=== PATIENT | female | born 1945 | race Two or more races ===

== ENCOUNTER → 2016-04-30 | Day surgery (SDC) | payer MEDICARE, OTHER ==
--- NOTE | 2016-04-26 10:42 | Pre-Procedure Note/Attestation ---
Pre-Procedure Note/Attestation Complete Prior to Procedure Planned Procedure: right Procedure Narrative: 1.CATARACT EXTRACTION WITH PHACO AND PC IOL IMPLANTATION, RIGHT EYE. 2.LIMBAL RELAXING INCISION (LRI), RIGHT EYE. I Indications for Procedure Pre-Operative Diagnosis: 1. CATARACT, RIGHT EYE. 2.ASTIGMATISM, RIGHT EYE. Attestation I attest that I discussed the nature of the procedure; its benefits; risks and complications; and alternatives (and the risks and benefits of such alternatives ), prior to the procedure, with the patient (or the patient's legal international account representative). I attest that, if there was a reasonable possibility of needing a blood transfusion, the patient (or the patient's legal international account representative) was given the [place] [facility] standardized written summary, pursuant to the Dorian Leon Blood Safety Act ([place] Health and Safety Code # 1645, as amended). I attest that I re-evaluated the patient just prior to the surgery and that there has been no change in the patient's H&P, except as documented below: DAVEY FRIED Apr 26, 2016 10:42
[2016-04-30] VITALS (9 sets, daily range): BP systolic 134–178; BP diastolic 64–98
[~2016-04-30] VITALS: Ht 165.1 cm; Wt 63.5 kg
[~2016-04-30] MED LIST: Akten 3.5% 1ml Btl ONE; BSS 15ml BTL ONE; BSS 500ml btl ONE; Dexamethasone 4mg/ml vial ONE; Diclofenac Sod 0.1% Op Soln ONE; DiphenhydrAMINE 50mg/ml Inj IVP PRN; EPINEPHrine 1mg/1ml Amp ONE; Gatifloxacin Opth Solution 0.5% ONE; LEVOTHYROXINE50 MCG ORAL; LEVOTHYROXINE75 MCG ORAL; LISINOPRIL20 MG ORAL; LR 1000ml 1,000 ML IVLG SCH; LR 1000ml ONE; Labetalol 5mg/ml 20ml vial IV PRN; Lidocaine 1% MPF 10mg/ml 5ml ONE; Lidocaine 1% Plain 30 ml INJ ONE; METFORMIN HCL500 M1 ORAL; Midazolam 2mg/2ml Inj ONE; NS Irrig 1000ml ONE; Phenylephrine 10% Opth Soln 5ml ONE; Povidone-Iodine 5% opth solution ONE; Sodium Hyaluronate 10 mg/ml 0.85ml ONE; Sterile Water Irrig 1000ml IRRIG ONE; Tropicamide 1% Opth Soln ONE; acetaZOLAMIDE 125mg tab ORAL ONE; fentaNYL 100 mcg/2 mL IV ONE
--- NOTE | 2016-04-30 07:43 | Anethesia Preoperative Eval ---
Anesthesia Pre-op PMH/ROS General Date of Evaluation: Apr 30, 2016 Anesthesiologist: Marcelino ASA Score: ASA 2 Mallampati Score Class I : Soft palate, uvula, fauces, pillars visible Class II: Soft palate, uvula, fauces visible Class III: Soft palate, base of uvula visible Class IV: Only hard plate visible Mallampati Classification: Class II Surgeon: Rishabh Diagnosis: Right cataract Surgical Procedure: Right catarct extraction with IOL Anesthesia History: none Family History: no anesthesia problems Allergies: Coded Allergies: No Known Allergies (Unverified , 04/26/16) Medications: see eMAR Past Medical History Cardiovascular: Reports: HTN, Denies: CAD, [place], arrhythmia, other, valve dz Pulmonary: Denies: COPD, MEGAN, asthma, other Gastrointestinal/Genitourinary: Reports: GERD, Denies: CRI, ESRD, other Neurologic/Psychiatric: Denies: CVA, TIA, dementia, depression/anxiety, other Endocrine: Reports: DM, hypothyroidism, Denies: other, steroids HEENT: Reports: cataract (L), cataract (R), Denies: SNOQUALMIE (L), SNOQUALMIE (R), glaucoma, other Hematology/Immune: Denies: DVT, anemia, bleeding disorder, other Musculoskeletal/Integumentary: Reports: OA, Denies: DDD, DJD, RA, edema, other Anesthesia Pre-op Phys. Exam Physician Exam see chart Constitutional: NAD Cardiovascular: RRR Respiratory: CTA Airway Exam Mallampati Score: Class II MO: full Teeth: other - dental implants Anesthesia Pre-op A/P Labs see chart Studies Pre-op Studies: EKG - sr Risk Assessment & Plan Assessment: ASa II Plan: MAC Status Change Before Surgery: No Pre-Antibiotics Drug: N/A ANUP ROBLES M.D. Apr 30, 2016 07:43
--- NOTE | 2016-04-30 07:44 | Immediate Post-Op Evaluation ---
Immediate Post-Op Evalulation Immediate Post-Op Evalulation Procedure: Right cataract extraction with IOL Date of Evaluation: Apr 30, 2016 Time of Evaluation: 10:18 IV Fluids: 300 Blood Products: 0 Estimated Blood Loss: 0 Urinary Output: 0 Blood Pressure Systolic: 178 Blood Pressure Diastolic: 98 Pulse Rate: 66 Respiratory Rate: 16 O2 Sat by Pulse Oximetry: 100 Temperature (Fahrenheit): 99.1 Pain Score (1-10): 0 Nausea: No Vomiting: No Complications 0 Patient Status: awake, reacts, patent, none Hydration Status: adequate Drug: N/A ANUP ROBLES M.D. Apr 30, 2016 07:44
--- NOTE | 2016-04-30 07:44 | 48 Hour Post Anesthesia Eval ---
Post Anesthesia Evaluation Procedure: Right cataract extraction with IOL Date of Evaluation: Apr 30, 2016 Blood Pressure Systolic: 161 0: 89 Pulse Rate: 61 Respiratory Rate: 16 O2 Sat by Pulse Oximetry: 100 Airway: patent Nausea: No Vomiting: No Pain Intensity: 0 Hydration Status: adequate Cardiopulmonary Status: at baseline Mental Status/LOC: patient returned to baseline Post-Anesthesia Complications: 0 Follow-up care needed: ready to discharge ANUP ROBLES M.D. Apr 30, 2016 07:44
[2016-04-30] MEDS: Diclofenac Sod 0.1% Op Soln RIGHT EYE SCH ×3 (07:52→08:30)
[2016-04-30] MEDS: Tropicamide 1% Opth Soln RIGHT EYE SCH ×3 (07:52→08:30)
[2016-04-30] MEDS: Akten 3.5% 1ml Btl RIGHT EYE SCH ×3 (07:52→08:30)
[2016-04-30] MEDS: Phenylephrine 10% Opth Soln 5ml RIGHT EYE SCH ×3 (07:53→08:31)
[2016-04-30] MEDS: Gatifloxacin Opth Solution 0.5% RIGHT EYE SCH ×3 (07:53→08:31)
--- NOTE | 2016-04-30 10:17 | Brief Operative Note ---
Immediate Post Operative Note Operative Note Chief Complaint: Blurry vision, right eye. Difficulty driving and reading, right eye Pre-op Diagnosis: 1. CATARACT, RIGHT EYE. 2.ASTIGMATISM, RIGHT EYE. Procedure: 1- Cataract extraction with phaco and PC IOL implantation, right eye 2- Limbal relaxing incision ( LRI ), right eye Post-op Diagnosis: same as pre-op Surgeon: Davey Keating MD. Weight Clerk: None Additional Surgeons: None Anesthesiologist: Dr. Gibson Anesthesia: MAC Specimen: none Complications: none Condition: stable Estimated Blood Loss: none Drains: none Implant(s) used?: Yes - Monofocal PC IOL implanted in the right eye without complication DAVEY KEATING Apr 30, 2016 10:17
--- NOTE | 2016-04-30 23:17 | Discharge Summary ---
DATE OF ADMISSION: 04/30/2016 DATE OF DISCHARGE: 04/30/2016 REASON FOR HOSPITALIZATION: Cataract in the right eye. SURGERY PERFORMED: 1. Cataract extraction with phacoemulsification and posterior chamber intraocular lens implantation in the right eye. 2. Limbal relaxing incision (LRI) in the right eye. CONDITION IN THE HOSPITAL: The patient tolerated the surgery without complications. CONDITION AT DISCHARGE: The patient was stable at discharge. DISCHARGE MEDICATIONS: 1. Prednisolone 1% q.i.d., right eye. 2. Vigamox eye drops one drop q.i.d., right eye. 3. Acular one drop q.i.d., right eye. POSTOPERATIVE ORDERS: The patient has to rest at home. No bending. No lifting. No watching TV tonight. POSTOPERATIVE FOLLOWUP: The patient will be followed in my office tomorrow morning at 9 o'clock. Waldo Keating M.D. DR: DAGO JOB#: [id number] CC:
--- NOTE | 2016-05-01 00:17 | Operative Note - Dictated ---
DATE OF OPERATION: 04/30/2016 FACILITY: [facility]. SURGEON: Waldo Keating M.D. PRESALES CONSULTANT: None. ANESTHESIOLOGIST: Dr. Gibson. ANESTHESIA: Monitored anesthesia care (MAC). PREOPERATIVE DIAGNOSES: 1. Cataract, right eye. 2. Astigmatism of the right eye. POSTOPERATIVE DIAGNOSES: 1. Cataract of the right eye. 2. Astigmatism of the right eye. SURGERIES PERFORMED: 1. Cataract extraction with phacoemulsification and posterior chamber intraocular lens implantation in the right eye. 2. Limbal relaxing incision (LRI) in the right eye. INDICATION FOR SURGERY: The patient is a 70-year-old lady with history of hypertension, hypothyroidism, osteopenia, diabetes mellitus type 2, depression, and . The patient does not have any allergy to medication and the patient is not a smoker. Medications including aspirin 81 mg a day, lisinopril, hydrochlorothiazide, 20 mg one tablet daily, atorvastatin oral 20 mg, levothyroxine 75 mg a day, metformin 500 mg twice a day, Zoloft once a day, and melatonin 20 mg once at night. She is complaining of blurry vision in the right eye. On examination of the right eye, the cornea is clear. Anterior chamber is clean and quiet. Pupillary reflex is normal. There is 3+ nuclear sclerosis and 2+ cortical cataract. Funduscopy shows normal optic disc, normal macula, and periphery retina is within normal limits. To improve her vision in the right eye, the cataract has to be removed and posterior chamber intraocular lens has to be implanted. INFORMED CONSENT: The nature of the surgery, risks, benefits, alternatives, and potential complications were explained in detail to the patient in her language, Farsi. The potential complications including, but not limited to bleeding, infection, posterior capsular rupture, lens subluxation, flat anterior chamber, iris prolapse, uveitis, corneal edema, macular edema, retinal detachment, loss of vision, and even loss of the eye were all explained in detail to the patient. The patient voiced understanding and accepted all the complications. The alternatives including accommodating lenses, multifocal lenses, and conventional cataract surgery with limbal relaxing incision for treatment of astigmatism were all explained in detail to the patient, who voiced understanding. The patient elected to have only conventional cataract surgery in the right eye and limbal relaxing incision post treatment of astigmatism. Then, she signed the consent form, which is in the chart. DESCRIPTION OF SURGERY AND FINDINGS: Following that, the patient was taken to the operation room in a stable condition. Lidocaine gel, Akten 3.5% were applied to the conjunctiva of the right eye. Following that, IV sedation was given by the anesthesiologist, Dr. Gibson. After adequate anesthesia and sedation had been achieved, the right eye was prepped and draped in sterile fashion for intraocular surgery. Following that, a speculum was placed in the right eye. Before, the patient was taken to the operation room, the eye was marked at 180 and 90 meridian. In the operation room, the cornea was marked using a corneal marker and marking pen and steep meridian at the cornea was marked. Following that, with a yoana knife 600 micron blade, two parallel incisions were placed on the steep meridian at the cornea for treatment of astigmatism. Following that, using a Super Sharp knife, a clear corneal side port was created. A 1% lidocaine was injected into the anterior chamber. The viscoelastic agent, Healon was injected into the anterior chamber. Following that, a clear corneal temporal keratotomy was performed. Following that, a VisionBlue was injected into the anterior chamber on top of the anterior capsule of the lens to stain the anterior capsule of the lens. Following that, a clear fresh viscoelastic agent, Healon was injected into the anterior chamber again. Under the viscoelastic agent, an anterior capsulotomy was performed in the fashion of capsulorrhexis beautifully. Following that, all viscoelastic agent was removed from the anterior chamber. Following that, with balanced salt solution, hydrodissection and hydrodelineation was performed and the nucleus was freed. Following that, viscoelastic agent was injected into the anterior chamber again to protect the endothelium of the cornea. Following that, using the phacoemulsification machine in the fashion of horizontal chop, the nucleus was removed in toto. Following that, using the irrigation aspiration unit, the cortical material was removed from the capsular bag and the capsular bag was polished. Following that, the capsular bag was filled with viscoelastic agent, Healon. Following that, a +22.5 diopter ZCB00 foldable PCIOL with serial number [id number] was injected into the capsular bag. Using a Sinskey hook, the lens was manipulated within the proper position. Following that, the viscoelastic agent was removed from that anterior and posterior part of the lens and the anterior chamber was filled with the balanced salt solution. The wounds were hydrated with balanced salt solution. Following that, the wound was checked for leakage and there was no leakage. Vigamox eyedrops were applied to the conjunctiva of the right eye. The patient tolerated the surgery without complications. At the end of the surgery, the eye was patched with a clear sterile fenestrated shield. Following the patient was transferred to the recovery room. In the recovery room, 125 mg Diamox was given by mouth stat. Postoperative orders and directions were given to the patient. The patient will be discharged home upon stabilization. The patient will be followed in my office tomorrow morning at 9 o'clock. Waldo Keating M.D. DR: DAGO JOB#: [id number] CC:
== END | disposition home or self-care (01) ==
LOC: SUR 07:22
DX: H25.11 Age-related nuclear cataract, right eye (principal); H25.011 Cortical age-related cataract, right eye; H52.201 Unspecified astigmatism, right eye; E11.9 Type 2 diabetes mellitus without complications; Z79.84 Long term (current) use of oral hypoglycemic drugs; I10 Essential (primary) hypertension; E03.9 Hypothyroidism, unspecified; E78.5 Hyperlipidemia, unspecified; K21.9 Gastro-esophageal reflux disease without esophagitis; M19.90 Unspecified osteoarthritis, unspecified site; M81.0 Age-related osteoporosis without current pathological fracture; F32.9 Major depressive disorder, single episode, unspecified; G47.00 Insomnia, unspecified; Z79.82 Long term (current) use of aspirin; Z79.899 Other long term (current) drug therapy
CPT/HCPCS: 66984; 66999; 82962; J0171; J1100; J1200; J2001; J2250; J3010; J7120; V2632; 94003; 94150

== ENCOUNTER → 2016-05-07 | Day surgery (SDC) | payer MEDICARE, OTHER ==
--- NOTE | 2016-05-02 15:27 | Pre-Procedure Note/Attestation ---
Pre-Procedure Note/Attestation Complete Prior to Procedure Planned Procedure: left Procedure Narrative: 1.CATARACT EXTRACTION WITH PHACO AND PC IOL IMPLANTATION, LEFT EYE. Indications for Procedure Pre-Operative Diagnosis: 1. CATARACT, LEFT EYE. Attestation I attest that I discussed the nature of the procedure; its benefits; risks and complications; and alternatives (and the risks and benefits of such alternatives ), prior to the procedure, with the patient (or the patient's legal senior sales representative). I attest that, if there was a reasonable possibility of needing a blood transfusion, the patient (or the patient's legal senior sales representative) was given the [facility] standardized written summary, pursuant to the Dorian Leon Blood Safety Act ([place] Health and Safety Code # 1645, as amended). I attest that I re-evaluated the patient just prior to the surgery and that there has been no change in the patient's H&P, except as documented below: DAVEY FRIED May 02, 2016 15:27
[~2016-05-07] VITALS: Ht 162.6 cm; Wt 63.5 kg
[2016-05-07] VITALS (8 sets, daily range): BP systolic 136–169; BP diastolic 71–82
[~2016-05-07] MED LIST changes: +Carbachol 0.01% Op Soln 1.5ml vial ONE; +DiphenhydrAMINE 50mg/ml Inj ONE; -Lidocaine 1% Plain 30 ml INJ ONE; +Tetracaine 0.5% Opth Soln ONE
[2016-05-07] MEDS: Phenylephrine 10% Opth Soln 5ml LEFT EYE SCH ×3 (07:12→07:26)
[2016-05-07] MEDS: Akten 3.5% 1ml Btl LEFT EYE SCH ×3 (07:12→07:26)
[2016-05-07] MEDS: Gatifloxacin Opth Solution 0.5% LEFT EYE SCH ×3 (07:13→07:26)
[2016-05-07] MEDS: Tropicamide 1% Opth Soln LEFT EYE SCH ×3 (07:13→07:26)
[2016-05-07] MEDS: Diclofenac Sod 0.1% Op Soln LEFT EYE SCH ×3 (07:13→07:26)
--- NOTE | 2016-05-07 07:21 | Anethesia Preoperative Eval ---
Anesthesia Pre-op PMH/ROS General Date of Evaluation: May 07, 2016 Anesthesiologist: Marcelino ASA Score: ASA 2 Mallampati Score Class I : Soft palate, uvula, fauces, pillars visible Class II: Soft palate, uvula, fauces visible Class III: Soft palate, base of uvula visible Class IV: Only hard plate visible Mallampati Classification: Class II Surgeon: Rishabh Diagnosis: Left cataract Surgical Procedure: Left cataract extraction with IOL Anesthesia History: none Family History: no anesthesia problems Allergies: Coded Allergies: No Known Allergies (Unverified , 04/26/16) Medications: see eMAR Past Medical History Cardiovascular: Reports: HTN, Denies: CAD, [place], arrhythmia, other, valve dz Pulmonary: Denies: COPD, MEGAN, asthma, other Gastrointestinal/Genitourinary: Reports: GERD, Denies: CRI, ESRD, other Neurologic/Psychiatric: Denies: CVA, TIA, dementia, depression/anxiety, other Endocrine: Reports: DM, hypothyroidism, Denies: other, steroids HEENT: Denies: AKHIOK (L), AKHIOK (R), cataract (L), cataract (R), glaucoma, other Hematology/Immune: Denies: DVT, anemia, bleeding disorder, other Musculoskeletal/Integumentary: Reports: OA, Denies: DDD, DJD, RA, edema, other PSxH Narrative: see chart Anesthesia Pre-op Phys. Exam Physician Exam see chart Constitutional: NAD Cardiovascular: RRR Respiratory: CTA Airway Exam Mallampati Score: Class II Anesthesia Pre-op A/P Labs see chart Studies Pre-op Studies: EKG - sr Risk Assessment & Plan Assessment: ASA II Plan: MAC Status Change Before Surgery: No Pre-Antibiotics Drug: N/A ANUP ROBLES M.D. May 07, 2016 07:21
--- NOTE | 2016-05-07 07:24 | Immediate Post-Op Evaluation ---
Immediate Post-Op Evalulation Immediate Post-Op Evalulation Procedure: Left cataract extraction with IOL Date of Evaluation: May 07, 2016 Time of Evaluation: 09:25 IV Fluids: 300 Blood Products: 0 Estimated Blood Loss: 0 Urinary Output: 0 Blood Pressure Systolic: 170 Blood Pressure Diastolic: 89 Pulse Rate: 72 Respiratory Rate: 16 O2 Sat by Pulse Oximetry: 98 Temperature (Fahrenheit): 97.6 Pain Score (1-10): 0 Nausea: No Vomiting: No Complications 0 Patient Status: awake, reacts, patent, none Hydration Status: adequate Drug: N/A ANUP ROBLES M.D. May 07, 2016 07:24
--- NOTE | 2016-05-07 07:25 | 48 Hour Post Anesthesia Eval ---
Post Anesthesia Evaluation Procedure: Left cataract extraction with IOL Date of Evaluation: May 07, 2016 Blood Pressure Systolic: 159 0: 88 Pulse Rate: 68 Respiratory Rate: 16 O2 Sat by Pulse Oximetry: 98 Airway: patent Nausea: No Vomiting: No Pain Intensity: 0 Hydration Status: adequate Cardiopulmonary Status: at baseline Mental Status/LOC: patient returned to baseline Post-Anesthesia Complications: 0 Follow-up care needed: ready to discharge ANUP ROBLES M.D. May 07, 2016 07:25
--- NOTE | 2016-05-07 09:24 | Brief Operative Note ---
Immediate Post Operative Note Operative Note Chief Complaint: Blurry vision, left eye. Difficulty reading and driving Pre-op Diagnosis: 1. CATARACT, LEFT EYE. Procedure: Cataract extraction with phaco and PC IOL implantation left eye Post-op Diagnosis: same as pre-op Surgeon: Davey Keating MD. Fx Artist: None Additional Surgeons: None Anesthesiologist: Dr. Gibson Anesthesia: MAC Specimen: none Complications: none Condition: stable Estimated Blood Loss: none Drains: none Implant(s) used?: Yes - Monofocal PC IOL implanted in the left eye without complication DAVEY KEATING May 07, 2016 09:24
--- NOTE | 2016-05-07 22:17 | Operative Note - Dictated ---
DATE OF OPERATION: 05/07/2016 FACILITY: [facility]. SURGEON: Waldo Keating M.D. REGISTERED VASCULAR TECHNOLOGIST (RVT): None. ANESTHESIOLOGIST: Dr. Gibson. ANESTHESIA: Monitored anesthesia care (MAC). PREOPERATIVE DIAGNOSIS: Cataract, left eye. POSTOPERATIVE DIAGNOSIS: Cataract, left eye. SURGERY PERFORMED: 1. Cataract extraction with phacoemulsification of posterior chamber intraocular lens implantation in the left eye. 2. Limbal relaxing incision (LRI), left eye. INDICATION FOR SURGERY: The patient is a 70-year-old lady with history of hypertension, hypothyroidism, osteopenia, diabetes mellitus type 2, depression, and hyperlipidemia. The patient denies any allergies to medications and the patient is not a smoker. Medication including aspirin 81 mg a day, lisinopril, hydrochlorothiazide one tablet daily, atorvastatin oral 20 mg, levothyroxine 75 mcg a day, metformin 500 mg twice a day, Zoloft, and melatonin at night. She is complaining of blurry vision in the left eye. On examination of the left eye, the cornea is clear. Anterior chamber is clean and quiet. Pupillary reflex is normal. There is 3+ nuclear sclerosis and 2+ cortical cataract. Funduscopy shows normal optic disc, normal macula, and periphery retina is within normal limits. She has had cataract surgery in the right eye last week and she is happy with the result. He improve her vision in the left eye, the cataract has to be removed and posterior chamber intraocular lens has to be implanted. INFORMED CONSENT: The nature of the surgery, risks, benefits, alternatives, and potential complications were explained in detail to the patient in her language, Farsi. The potential complications including, but not limited to bleeding, infection, posterior capsular rupture, lens subluxation, flat anterior chamber, iris prolapse, uveitis, corneal edema, macular edema, endophthalmitis, retinal detachment, loss of vision, and even loss of the eye were all explained in detail to the patient. The patient voiced understanding and accepted all the complications. The alternatives including accommodating lenses, multifocal lenses, and conventional cataract surgery with limbal relaxing incision for treatment of astigmatism were all explained in detail to the patient, who voiced understanding. The patient elected to have only conventional cataract surgery in the left eye. Then, she signed the consent form, which is in the chart. DESCRIPTION OF SURGERY AND FINDINGS: Following that, the patient was taken to the operation room in a stable condition. Lidocaine gel, Akten 3.5% were applied to the conjunctiva of the left eye. Following that, IV sedation was given by the anesthesiologist, Dr. Gibson. After adequate anesthesia and sedation had been achieved, the left eye was prepped and draped in sterile fashion for intraocular surgery. Following that, a speculum was placed in the left eye. Following that, using a Super Sharp knife, a clear corneal side port was created. Following that, 1% lidocaine without preservative (MPF) was injected into the anterior chamber. Viscoelastic agent Healon was injected into the anterior chamber. Following that, a clear corneal temporal keratotomy was performed with a 2.8 mm keratome. Following that, a VisionBlue was injected under the viscoelastic agent into anterior chamber to stain the anterior capsule of the lens. Following that, clear and fresh viscoelastic agent Healon was injected into the anterior chamber again. Under the fresh and clear, viscoelastic agent Healon an anterior capsulotomy was performed in the fashion of capsulorrhexis beautifully. Following that, whole viscoelastic agent was removed from the anterior chamber. Following that, with balanced salt solution hydrodissection and hydrodelineation was performed and the nucleus was freed. Following that, a clear new viscoelastic agent was injected into the anterior chamber again to protect the endothelium of the cornea again. Following that, using a phacoemulsification machine in the fashion of horizontal chop, the nucleus was removed in toto. Following that, using irrigation aspiration unit, the cortical material was removed from the capsular bag and the capsular bag was polished. Following that, the capsular bag was filled with viscoelastic agent, Healon. Following that, +23.5 diopter IOL, brand [id number] foldable PC IOL with serial was injected into the anterior chamber. Healon was injected into the capsular bag. Using a Sinskey hook, the lens was manipulated within the proper position. Following that, the viscoelastic agent was removed from the anterior posterior part of the lens and anterior chamber was filled with balanced salt solution. The wound was hydrated with balanced salt solution. Following that, the wound was checked for leakage and there was no leakage. Vigamox eye drops were applied to the conjunctiva of the left eye. The patient tolerated the surgery without complications. At the end of the surgery, the eye was patched with a clear sterile fenestrated shield. Following that, the patient was transferred to the recovery room. In the recovery room, 125 mg Diamox was given by mouth stat. Postoperative orders and directions were given to the patient. The patient will be discharged home upon stabilization. The patient will be followed in my office tomorrow morning at 9 o' clock in the morning. Waldo Keating M.D. DR: Caridad JOB#: [id number] CC:
--- NOTE | 2016-05-07 22:18 | Discharge Summary ---
DATE OF ADMISSION: 05/07/2016 DATE OF DISCHARGE: 05/07/2016 REASON FOR HOSPITALIZATION: Cataract, left eye. SURGERY PERFORMED: Cataract extraction with phacoemulsification and posterior chamber intraocular lens implantation, left eye. CONDITION IN THE HOSPITAL: The patient tolerated the surgery without complications. DISCHARGE CONDITION: The patient was stable at discharge. DISCHARGE MEDICATIONS: 1. Prednisolone one drop q.i.d., left eye. 2. Besivance eye drops one drop q.i.d., left eye. 3. Acular one drop q.i.d., left eye. POSTOPERATIVE ORDERS: The patient has to rest at home. No bending. No lifting. No watching TV tonight. Postoperative Followup: The patient will be followed in my office tomorrow morning at 9:30 a.m. Waldo Keating M.D. DR: Caridad JOB#: [id number] CC:
--- NOTE | 2016-05-09 11:38 | Pre-op HX & Phy Repo 2 SIG ---
DATE OF ADMISSION: 05/07/2016 PRESURGICAL INTERNAL MEDICINE HISTORY AND PHYSICAL DATE OF EVALUATION: 05/07/2016 REASON FOR EVALUATION: I was asked by Dr. Waldo Keating to see this 70-year-old female, who is going for elective surgery on the left eye due to the cataract in left eye. Please see full description in History and Physical by Dr. Waldo Keating. The patient was examined, chart was reviewed. The patient was admitted to the hospital for left eye cataract surgery . PAST MEDICAL HISTORY: The patient's past medical history is remarkable for hypertension, hypothyroidism, and type 2 diabetes mellitus. MEDICATIONS: Previous chart. ALLERGIES: Previous chart. FAMILY HISTORY: Previous chart. REVIEW OF SYSTEMS: Previous chart. PHYSICAL EXAMINATION: GENERAL: The patient is alert. VITAL SIGNS: Blood pressure 135/75, respirations 18, O2 saturation 96%, and heart rate is 63. SKIN: Clear and warm. No rashes. LYMPHATICS: Lymph nodes not enlarged. HEENT: Head, normocephalic and atraumatic. Ears, clear. Eyes, full description per Dr. Waldo Keating. Mouth: Clear and moist. NECK: Supple. No jugular vein distention. Carotids are 2+. Trachea midline. CHEST: No deformity or asymmetry. LUNGS: Clear to auscultation and percussion. No rales or rhonchi. HEART: Sinus rhythm. No ectopy. No murmur. No S3 or S4. ABDOMEN: Soft and benign. Liver and spleen not enlarged. No palpable mass. EXTREMITIES: No calf tenderness or edema. No deformity. GENITOURINARY TRACT: CVA nontender. NEUROLOGIC: No tremor, no nystagmus, and no asymmetry. DIAGNOSTIC DATA: EKG from 04/18/2016 is normal. Laboratory work shows normal. IMPRESSION: 1. Cataract, left eye. 2. Hypertension, controlled. 3. Type 2 diabetes mellitus, controlled. 4. Hypothyroidism. PLAN: Cataract extraction of left eye per Dr. Waldo Keating. CONCLUSION: The patient multiple medical problems including diabetes, hypertension, and hypothyroidism. The patient bradycardia. She did not eat or drink from last night. The patient's condition is optimized for surgery. Thank you very much, Dr. Keating, for the privilege to participate in the presurgical care of this interesting patient. Charlette Rush M.D. DR: Samantha JOB#: [id number] CC:
== END | disposition home or self-care (01) ==
LOC: SUR 06:51
DX: H25.12 Age-related nuclear cataract, left eye (principal); H25.012 Cortical age-related cataract, left eye; I10 Essential (primary) hypertension; E03.9 Hypothyroidism, unspecified; E11.9 Type 2 diabetes mellitus without complications; Z79.84 Long term (current) use of oral hypoglycemic drugs; F32.9 Major depressive disorder, single episode, unspecified; K21.9 Gastro-esophageal reflux disease without esophagitis; E78.5 Hyperlipidemia, unspecified; M19.90 Unspecified osteoarthritis, unspecified site; M81.0 Age-related osteoporosis without current pathological fracture; Z79.82 Long term (current) use of aspirin
CPT/HCPCS: 66984; 82962; J0171; J1100; J1200; J2250; J3010; J7120; V2632; 94003; 94150